=== PATIENT | female | born 1945 | race Caucasian/White ===

== ENCOUNTER 2021-02-02 09:58 | Outpatient (CLI) | payer MEDICARE, SELFPAY ==
--- NOTE | ~2021-02-02 | MM_ITS ---
EXAMINATION: MM screening [facility] BI w woo HISTORY: Screening mammogram TECHNIQUE: Craniocaudal and mediolateral oblique 3-D tomosynthesis images were obtained and synthetic 2-D images were generated. CAD analysis was submitted and interpreted. COMPARISON: 11/18/2019, 06/20/2018 BREAST PARENCHYMAL COMPOSITION: The breasts are almost entirely fatty. FINDINGS: There is no evidence of suspicious mass, calcification, or architectural distortion to sugg est malignancy in either breast. There has been no suspicious interval change. IMPRESSION: 1. No mammographic evidence of malignancy. 2. Recommend routine screening mammography in one year. BI-RADS Category 1: Negative Reviewed, dictated and finalized at location A.
== END 2021-02-02 09:59 | disposition home or self-care (01) ==
PROVIDERS: PCP Family Medicine; Visit Provider Obstetrics & Gynecology
DX: Z12.31 Encounter for screening mammogram for malignant neoplasm of breast (principal)
CPT/HCPCS: 77063; 77067

== ENCOUNTER 2022-04-14 08:14 | Outpatient (CLI) | payer MEDICARE, SELFPAY ==
--- NOTE | ~2022-04-14 | MM_ITS ---
EXAMINATION: MM screening [facility] BI w woo HISTORY: Screening TECHNIQUE: Craniocaudal and mediolateral oblique 3-D tomosynthesis images were obtained and synthetic 2-D images were generated. CAD analysis was submitted and interpreted. COMPARISON: Comparison to multiple prior studies sequentially, with oldest reviewed study dated 06/20. BREAST PARENCHYMAL COMPOSITION: There are scattered areas of fibroglandular density. FINDINGS: There is no evidence of suspicious mass, calcification, or architectural distortion to sugg est malignancy in either breast. There has been no suspicious interval change. IMPRESSION: 1. No mammographic evidence of malignancy. 2. Recommend routine screening mammography in one year. BI-RADS Category 1: Negative Reviewed, dictated and finalized at location A.
== END 2022-04-14 08:15 | disposition home or self-care (01) ==
PROVIDERS: PCP Family Medicine; Visit Provider Family Medicine
DX: Z12.31 Encounter for screening mammogram for malignant neoplasm of breast (principal)
CPT/HCPCS: 77063; 77067

== ENCOUNTER 2022-06-29 09:19 | Emergency (ER) | payer MEDICARE, SELFPAY ==
[2022-06-29] VITALS (32 sets, daily range): BP systolic 126–167; BP diastolic 58–75; PULSE 58–75; RESP 12–22; TEMP 37.1; O2SAT 95–100
--- NOTE | 2022-06-29 09:37 | ECG_ITS ---
Measurements Intervals [place] [facility] Rate: 61 P: 57 AK: 190 QRS: 15 QRSD: 89 T: 49 QT: 416 QTc: 422 Interpretive Statements SINUS RHYTHM NORMAL ELECTROCARDIOGRAM NO PREVIOUS ECG AVAILABLE FOR COMPARISON Electronically Signed On 06-29-2022 12:52:37 CDT by Bob Lees M.D.
[2022-06-29 09:50] LABS: Basophils Percent Auto 0.8 % (0.2-1.2); Eosinophils Percent Auto 0.4 % (0-4.4); Hematocrit 38.1 % (37.0-47.0); Hemoglobin 13.5 g/dL (12.0-15.0); Immature Granulocyte Absolute 0.01 K/mm3 (0.00-0.031); Immature Granulocyte Percent A 0.4 % (0-0.5); Lymphocytes Percent Auto 27.3 % (18.3-44.2); Mean Corpuscular HGB Conc 35.4 g/dl (32-36); Mean Corpuscular Hemoglobin 33.2 pg (26-34); Mean Corpuscular Volume 93.6 fl (80-100); Mean Platelet Volume 9.6 fl (7.4-10.4); Monocytes Absolute Auto 0.4 K/mm3 (0.1-0.6); Monocytes Percent Auto 14.5 % (2.6-8.5); Neutrophils Absolute Auto 1.5 K/mm3 (1.3-6.7); Neutrophils Percent Auto 56.6 % (45.5-73.1); Platelet Count Result 276 k/mm3 (150-375); Red Blood Count 4.07 M/mm3 (4.2-5.4); White Blood Count 2.6 K/mm3 (4.5-10.0)
[2022-06-29 09:53] LABS: Appearance Urine Clear (Clear); Bilirubin Urine Negative (Negative); Blood Urine Negative (Negative); Glucose Urine UA Negative (Negative); Ketones Urine Negative (Negative); Leukocyte Esterase Ur Negative LEU/UL (Negative); Nitrate Urine Negative (Negative); Protein Urine Negative (Negative); Specific Grav Ur 1.015 (1.001-1.035); Urobilinogen Urine 0.2 mg/dL (<2.0)
[2022-06-29 10:01] LABS: Alanine Aminotransferase 27 U/L (6-35); Albumin Level 4.3 g/dL (3.5-5.1); Alkaline Phosphatase 81 U/L (38-126); Anion Gap 8 mmol/L (8-16); Aspartate Amino Transferase 52 U/L (14-36); Bilirubin,Total 0.4 mg/dL (0.2-1.3); Blood Urea Nitrogen 7 mg/dL (7-17); Calcium 8.5 mg/dL (8.4-10.2); Carbon Dioxide 25 mmol/L (22-30); Chloride 95 mmol/L (98-107); Estimated CRCL calculation 50 ml/min; Estimated Glomerular Filt Rate > 60; Glucose 135 mg/dL (65-110); Potassium 3.7 mmol/L (3.4-5.0); Sodium 128 mmol/L (137-145)
[2022-06-29 10:11] LABS: Add Urine Microscopic? NO; Color Urine Light Yellow (Yellow)
[2022-06-29] MEDS: SODIUM CHLORIDE 0.9% IV 1,000 ML 999 ML IV CONT (11:21)
--- NOTE | 2022-06-29 11:39 | PC.NURSE ---
Assumed pt care from SHADE Urias
--- NOTE | 2022-06-29 12:57 | ED.GENADULT ---
HPI - General Adult General Chief complaint: Weakness Stated complaint: COVID+ 06/24 Time Seen by Provider: 06/29/22 09:33 History of Present Illness HPI narrative: Patient is a 76-year-old female who presents the ER with weakness and fatigue. Patient diagnosed with COVID on 06/24/2022. She is on day 6. She has not been on Paxil bed. She has been having weakness and fatigue and decreased oral intake. She endorses fevers and chills. Yesterday she began having some nausea and vomiting as well as some diarrhea. No alleviating factors. No difficulty breathing. Very mild cough. Related Data Home Medications Medication Instructions Recorded Confirmed aspirin 81 mg tablet,delayed 81 mg PO DAILY 06/12/21 06/12/21 release (Adult Low Dose Aspirin) losartan 100 1 tablet PO DAILY 06/12/21 06/12/21 mg-hydrochlorothiazide 12.5 mg tablet metoprolol succinate 50 mg 50 mg PO DAILY 06/12/21 06/12/21 tablet,extended release 24 hr omeprazole 20 mg capsule,delayed 20 mg PO DAILY 06/12/21 06/12/21 release Allergies Allergy/AdvReac Type Severity Reaction Status Date / Time No Known Allergies Allergy Verified 06/29/22 09:36 Review of Systems Review of Systems: All systems reviewed & are unremarkable except as noted in HPI and below Constitutional: Constitutional: Reports chills, Reports fatigue, Reports fever(s) and Reports weakness ENT: Denies nasal congestion and Denies sore throat Cardiovascular: Cardiovascular: Denies chest pain, Denies rapid heart rate and Denies radiating jaw, neck or arm pain Gastrointestinal: Gastrointestinal: Denies abdominal pain, Reports diarrhea, Reports nausea and Denies vomiting Genitourinary: Genitourinary: Denies nocturia and Denies dysuria PMFSH Family History Family History Father Asthma Cancer Mother Cerebrovascular accident Hypertension Social History Social History Smoking status: Never smoker Alcohol intake: never Substance use: never Substance use type: does not use Exam Narrative: GENERAL: Well-appearing, well-nourished, and in no acute distress. HEAD: Normocephalic, atraumatic. EYES: PERRL and EOMI. ENT: Mucous membranes moist. CHEST: Clear to auscultation. No respiratory distress. HEART: Regular rate and rhythm. Normal peripheral pulses. ABDOMEN: Soft, nontender, nondistended. EXTREMITIES: Normal range of motion. No edema. SKIN: Warm, dry, no rash. NEURO: Alert and oriented x3. PSYCH: Normal mood and affect. Course Course Emergency Course: Patient resting comfortably. Hydrated. Still some nausea so we will give some Zofran. Discharge home with supportive care. Vital Signs Vital signs: Vital Signs Temperature 98.8 F 06/29/22 09:28 Pulse Rate 67 06/29/22 09:28 Respiratory Rate 14 06/29/22 09:28 Blood Pressure 165/73 H 06/29/22 09:28 Pulse Oximetry 95 06/29/22 09:28 Oxygen Delivery Room Air 06/29/22 09:28 Temperature 98.8 F 06/29/22 09:28 Pulse Rate 64 06/29/22 11:16 Respiratory Rate 17 06/29/22 11:16 Blood Pressure 150/68 H 06/29/22 11:16 Pulse Oximetry 96 06/29/22 11:16 Oxygen Delivery Room Air 06/29/22 09:28 Medical Decision Making Vital Signs Vital Signs: Vital Signs Temperature 98.8 F 06/29/22 09:28 Pulse Rate 67 06/29/22 09:28 Respiratory Rate 14 06/29/22 09:28 Blood Pressure 165/73 H 06/29/22 09:28 Pulse Oximetry 95 06/29/22 09:28 Oxygen Delivery Room Air 06/29/22 09:28 Temperature 98.8 F 06/29/22 09:28 Pulse Rate 64 06/29/22 11:16 Respiratory Rate 17 06/29/22 11:16 Blood Pressure 150/68 H 06/29/22 11:16 Pulse Oximetry 96 06/29/22 11:16 Oxygen Delivery Room Air 06/29/22 09:28 Lab Data Result diagrams: 06/29/22 09:42 06/29/22 09:42 Labs: Lab Results 06/29/22 06/29/22 06/29/22 Rang
[2022-06-29] MEDS: ONDANSETRON INJ 4 MG/2 ML VIAL IV PUSH (13:42)
== END 2022-06-29 14:30 | disposition home or self-care (01) ==
PROVIDERS: Emergency Provider Emergency Medicine; PCP Family Medicine
DX: U07.1 COVID-19 (principal); Z79.82 Long term (current) use of aspirin
CPT/HCPCS: 36415; 80053; 81003; 85025; 93005; 96361; 96374; 99284; J2405; J7030

== ENCOUNTER 2023-07-22 10:01 | Outpatient (CLI) | payer MEDICARE, SELFPAY ==
--- NOTE | ~2023-07-22 | MM_ITS ---
EXAMINATION: MM screening [facility] BI w woo HISTORY: Screening TECHNIQUE: Craniocaudal and mediolateral oblique 3-D tomosynthesis images were obtained and synthetic 2-D images were generated. CAD analysis was submitted and interpreted. COMPARISON: Comparison to multiple prior studies sequentially, with oldest reviewed study dated 06/20. BREAST PARENCHYMAL COMPOSITION: There are scattered areas of fibroglandular density. FINDINGS: There is no evidence of suspicious mass, calcification, or architectural distortion to sugg est malignancy in either breast. There has been no suspicious interval change. IMPRESSION: 1. No mammographic evidence of malignancy. 2. Recommend routine screening mammography in one year. BI-RADS Category 1: Negative Reviewed, dictated and finalized at location A.
== END 2023-07-22 10:02 | disposition home or self-care (01) ==
PROVIDERS: PCP Family Medicine; Visit Provider Family Medicine
DX: Z12.31 Encounter for screening mammogram for malignant neoplasm of breast (principal)
CPT/HCPCS: 77063; 77067

== ENCOUNTER 2023-08-15 14:32 | Outpatient (CLI) | payer MEDICARE, SELFPAY ==
--- NOTE | ~2023-08-15 | DEXA_ITS ---
Bone Density Report Name: ANGELICA CARPENTER Age: 77 Sex: Female Ethnicity: White Date of : 1945 Indication: postmenopausal; screening for osteoporosis; parental hip fracture; height loss; Referring Provider: KAROLYN, DAIANA Muhammad Study: Bone densitometry was performed. Exam Date: August 15, 2023 Accession number: [id number] Bone Density: Region BMD T-score Z-score Classification AP Spine(L1-L4) 0.918 -1.2 1.4 Osteopenia Femoral Neck (Left) 0.665 -1.7 0.6 Osteopenia Total Hip (Left) 0.841 -0.8 1.2 Normal Femoral Neck (Right) 0.606 -2.2 0.1 Osteopenia Total Hip (Right) 0.790 -1.2 0.8 Osteopenia Total Hip Mean 0.816 -1.0 1.0 Normal World Health Organization criteria for BMD impression classify patients as: Normal (T-score at or above -1.0), Osteopenia (T-score between -1.0 and -2.5), or Osteoporosis (T-score at or below -2.5). 10-year Fracture Risk(1): Major Osteoporotic Fracture 29% Hip Fracture 19% Reported Risk Factors: [place] (), Neck BMD=0.606, BMI=27.5, parental fracture (1) FRAX(R) Version 3.08. Fracture probability calculated for an untreated patient. Fracture probability may be lower if the patient has received treatment. Clinical Information Provided by Patient: Parent has had a hip fracture Has used the following medications: Vitamin D Patient maximum height was 64 Menopause Age: 49 No regular weight bearing exercise Drinks caffeinated beverages Onset of menses at age 13 Number of children 3 Impression: The patient has low bone mass, based on the Right Femoral Neck T-score. The patient has an estimated ten-year risk of hip fracture of 19% and an estimated ten-year risk of major fracture of 29%, based on the WHO FRAX algorithm. The patient has risk factors, including: parental hip fracture. Discussion: BONE DENSITY IS LOW AT ONE OR MORE SKELETAL SITES. THE PATIENT'S BMD AND CLINICAL RISK FACTORS CONTRIBUTE TO THIS PATIENT'S HIGH RISK OF FRACTURE. This patient's lowest T-score is low at one or more skeletal sites. It meets the World Health Organization's (WHO) criteria for ?low bone mass? (T-score between -1.0 and -2.5). The patient's 10-year risk of hip fracture and 10 year risk of a major osteoporotic fracture as calculated by FRAX exceeds the threshold where pharmacological therapy is recommended by the National Osteoporosis Foundation (NOF). However, all treatment decisions require clinical judgment and consideration of individual patient factors, including patient preferences, comorbidities, previous drug use, risk factors not captured in the FRAX model (e.g., frailty, falls, vitamin D deficiency, increased bone turnover, interval significant decline in bone density) and possible under or overestimation of fracture risk by FRAX. The patient should follow
== END 2023-08-15 14:33 | disposition home or self-care (01) ==
PROVIDERS: PCP Family Medicine; Visit Provider Family Medicine
DX: Z78.0 Asymptomatic menopausal state (principal); M85.89 Other specified disorders of bone density and structure, multiple sites
CPT/HCPCS: 77080

== ENCOUNTER 2023-11-06 20:56 | Emergency (ER) | payer OTHER, SELFPAY ==
--- NOTE | ~2023-11-06 | CT_ITS ---
EXAMINATION: CT brain wo con DATE: 11/06/2023 22:26 INDICATION: Head injury. TECHNIQUE: Computed tomography (CT) of the head was performed without intravenous contrast. The mA wa s adjusted according to patient size. Iterative reconstruction technique was employed. The dose-lengt h product was 605.33 mGy-cm. COMPARISON: None FINDINGS: There is no intracranial hemorrhage, acute infarction, or abnormal intracranial mass lesion . There are scattered areas of low attenuation in the cerebral white matter. The ventricles are norm al in size. There is mild mucosal thickening in the paranasal sinuses. The mastoid air cells are norm al. There are likely changes of ocular lens replacement surgeries. There is a left frontal scalp bobbi melanie. IMPRESSION: 1. Mild nonspecific cerebral white matter disease, which likely represents chronic small vessel ische lashae disease. Reviewed, dictated and finalized at location E. BASE ADMIN IMPRESSION: 1. Mild nonspecific cerebral white matter disease, which likely represents lunchroom monitor noam small vessel ischemic disease.
--- NOTE | ~2023-11-06 | CT_ITS ---
EXAMINATION: CT facial & cervical spine wo DATE: 11/06/2023 22:29 INDICATION: Head injury. TECHNIQUE: Computed tomography (CT) of the maxillofacial region and cervical spine was performed with out intravenous contrast. Automated exposure control and iterative reconstruction technique were empl oyed. The dose-length product was 237.62 mGy-cm. COMPARISON: None FINDINGS: MAXILLOFACIAL CT: There is a left frontal scalp hematoma. There are likely changes of ocular lens replacement surgeries . There is leftward deviation the nasal septum. No fracture. There is mild mucosal thickening in the paranasal sinuses. CERVICAL SPINE CT: There is mild scarring at the lung apices. There is 8 degrees dextrocurvature of cervicothoracic spin e. There is mild chronic anterior wedging of T2 vertebral body. There is mildly decreased disc height at C3-C4 and C4-C5. The following disc levels are specifically discussed: C2-C3: There is no uncovertebral joint osteoarthritis. There is mild right and severe left facet join t osteoarthritis. There is mild left neural foraminal stenosis. There is no central canal stenosis. C3-C4: There is mild right and severe left uncovertebral joint osteoarthritis. There is severe right and mild left facet joint osteoarthritis. There is mild bilateral neural foraminal stenosis. There is mild central canal stenosis. C4-C5: There is mild bilateral uncovertebral joint osteoarthritis. There is severe right facet joint osteoarthritis. There is mild right neural foraminal stenosis. There is mild central canal stenosis. C5-C6: There is mild bilateral uncovertebral joint osteoarthritis. There is severe right and mild lef t facet joint osteoarthritis. There is mild right neural foraminal stenosis. There is mild central ca nal stenosis. C6-C7: There is no uncovertebral joint osteoarthritis. There is mild bilateral facet joint osteoarthr itis. There is no neural foraminal stenosis. There is no central canal stenosis. C7-T1: There is no uncovertebral joint osteoarthritis. There is mild right and moderate left facet wilman int osteoarthritis. There is no neural foraminal stenosis. There is no central canal stenosis. IMPRESSION: 1. No fracture. 2. Mild cervical spondylosis. Reviewed, dictated and finalized at location E. ING COORDINATOR
[2023-11-06 21:00] VITALS: BP 172/68; PULSE 94; RESP 23; TEMP 36.6; O2SAT 100
[2023-11-06 21:55] VITALS: BP 163/54; PULSE 79; RESP 16; O2SAT 99
--- NOTE | 2023-11-06 22:19 | ED.HEATRA ---
HPI - Head Injury General Chief complaint: Trauma Stated complaint: fall head trauma Time Seen by Provider: 11/06/23 21:30 Source: patient and family Limitations: no limitations History of Present Illness HPI Narrative: Patient is a 78-year-old female presents to the emergency department accompanied by her sister for a fall. Patient neck just got home from [facility] at around 8:30 p.m. as walking up her steps her back and was on a level plane of the back she dropped a water and she is holding insert rolling away she went on to gravid fall forward and hit the left side of her face on the railing of the back. Patient did not lose consciousness. Patient denies use of blood thinners. Patient notes that she has been are normal state of health as of lately. Patient admits to standing up around been ambulatory since the event without any difficulty. Patient admits to pain over the left side of her face for which she has not taken any medications yet. Patient denies vision changes, difficulty swallowing, numbness, weakness, extremity pain, decreased range of motion, chest pain, shortness of breath, vomiting, nausea, abdominal pain, back pain, neck pain, urinary incontinence stool incontinence, dysuria, hematuria, urinary frequency, urinary urgency, diarrhea, melena, hematochezia, loose or chipped teeth. Patient does not know when her last tetanus shot was. Patient denies alcohol or illicit drug use. Related Data Home Medications Medication Instructions Recorded Confirmed aspirin 81 mg tablet,delayed 81 mg PO DAILY 06/12/21 06/12/21 release (Adult Low Dose Aspirin) losartan 100 1 tablet PO DAILY 06/12/21 06/12/21 mg-hydrochlorothiazide 12.5 mg tablet metoprolol succinate 50 mg 50 mg PO DAILY 06/12/21 06/12/21 tablet,extended release 24 hr omeprazole 20 mg capsule,delayed 20 mg PO DAILY 06/12/21 06/12/21 release Allergies Allergy/AdvReac Type Severity Reaction Status Date / Time No Known Allergies Allergy Verified 11/06/23 21:05 Review of Systems Review of Systems: A 10 system review of systems was completed on the patient and is negative except for what is stated in the HPI. Nursing and ancillary documentation was reviewed. [facility] Family History Family History Father Asthma Cancer Mother Cerebrovascular accident Hypertension Social History Social History Smoking status: Never smoker Alcohol intake: never Substance use: never Substance use type: does not use Comments At time of signature, I have reviewed and agree with nursing past medical, surgical, social and family history unless otherwise noted. Please see the nursing chart for further information. There is no relevant family history pertinent to the presenting complaint. Exam Narrative: CONST: No acute distress. Well nourished. HENMT: Moist mucous membranes. No posterior oropharynx erythema. No loose or chipped teeth. Midface is stable. left periorbital ecchymosis without tarsal plate spurring. No Graves sign. No hemotympanum bilaterally. Moderate swelling of the left forehead with mild tenderness to palpation, no palpable bony deformities. EYES: No conjunctival icterus, injection, or pallor. PERRL. Extraocular motions intact. NECK: No meningeal signs. RESP: Able to speak in full sentences. Normal respiratory effort. CTAB. CARDIO: Regular rate. Regular rhythm. 2+ DP and radial pulses bilaterally. GI: Nondistended. No tenderness to palpation. Soft. : No CVA tenderness to palpation. SKIN: No rashes or lesions noted on exposed skin. Small superficial hemostatic skin tears with scant ecchymosis overlying the left posterior distal forearm and the left dorsum of the hand and the right medial distal forearm. NEURO: Oriented x3. Moves all extremities. Sensation intact to light touch in all 4 extremities and fac
[2023-11-06] MEDS: HYDROcodone/acetaminophen (*CRX) 5-325 MG TABLET 1 TAB PO (22:39)
[2023-11-06] MEDS: TETANUS,DIPHTHERIA,AC PERTUSSIS ADULT (0.5 ML) BOOSTRIX IM (22:40)
[2023-11-06 23:59] VITALS: BP 149/54; PULSE 88; RESP 16; O2SAT 98
== END 2023-11-07 | disposition home or self-care (01) ==
LOC: ANHED 23:34
PROVIDERS: Emergency Provider Student in an Organized Health Care Education/Training Program; PCP Family Medicine
DX: S00.12XA Contusion of left eyelid and periocular area, initial encounter (principal); S00.03XA Contusion of scalp, initial encounter; S51.812A Laceration without foreign body of left forearm, initial encounter; S61.412A Laceration without foreign body of left hand, initial encounter; S51.811A Laceration without foreign body of right forearm, initial encounter; Z23 Encounter for immunization; Z79.82 Long term (current) use of aspirin; R90.82 White matter disease, unspecified; M47.812 Spondylosis without myelopathy or radiculopathy, cervical region; W01.198A Fall on same level from slipping, tripping and stumbling with subsequent striking against other object, initial encounter
CPT/HCPCS: 70450; 70486; 72125; 90471; 90715; 99284; A9270

== ENCOUNTER 2024-07-23 08:03 | Outpatient (CLI) | payer OTHER, SELFPAY ==
--- NOTE | ~2024-07-23 | MM_ITS ---
EXAMINATION: MM screening [facility] BI w woo HISTORY: Screening mammogram TECHNIQUE: Craniocaudal and mediolateral oblique 3-D tomosynthesis images were obtained and synthetic 2-D images were generated. CAD analysis was submitted and interpreted. COMPARISON: 07/22/2023, 04/14/2022, 02/02/2021, 11/18/2019 BREAST PARENCHYMAL COMPOSITION:Not Dense. The breasts are almost entirely fatty FINDINGS: No suspicious mass, calcification, or architectural distortion are identified in either jonathan ast to suggest malignancy. There has been no suspicious interval change. IMPRESSION: No mammographic evidence of malignancy. Recommend routine screening mammography in one year. BI-RADS Category 1: Negative Reviewed, dictated and finalized at location .
== END 2024-07-23 08:04 | disposition home or self-care (01) ==
PROVIDERS: PCP Family Medicine; Visit Provider Family Medicine
DX: Z12.31 Encounter for screening mammogram for malignant neoplasm of breast (principal)
CPT/HCPCS: 77063; 77067

== ENCOUNTER 2025-08-20 07:54 | Outpatient (CLI) | payer OTHER, SELFPAY ==
--- NOTE | ~2025-08-20 | MM_ITS ---
EXAMINATION: MM screening alexander BI w woo HISTORY: Screening TECHNIQUE: Craniocaudal and mediolateral oblique 3-D tomosynthesis images were obtained and synthetic 2-D images were generated. CAD analysis was submitted and interpreted. COMPARISON: 04/14/2022 BREAST PARENCHYMAL COMPOSITION: There are scattered areas of fibroglandular density. FINDINGS: There is no evidence of suspicious mass, calcification, or architectural distortion to suggest malignancy. There has been no suspicious interval change. IMPRESSION: 1. No mammographic evidence of malignancy. Recommend routine screening mammography in one year. BI-RADS Category 2: Benign finding(s) Reviewed, dictated and finalized at location Q. IMPRESSION: 1. No mammographic evidence of malignancy. Recommend routine screening mammogra phy in one year. BI-RADS Category 2: Benign finding(s)
--- OUTSIDE RECORDS SUMMARY | 2025-08-20 08:03 | XMS_ITS | Encounter Summary ---
Author Organization [facility] Facility Care Team Providers Care Pupil Personnel Worker Name Role Phone Isaak Salamanca MD Primary Care Provider [phone] Aga Land MD Unavailable [phone] Alfonso Walls MD Unavailable [phone] Encounter Details Date Type Department Care Team (Latest Contact Info) Description 03/30/2016 Orders Only [facility] CLINCONV ProviderHui MD [address] [place] [id number] Social History Tobacco Use Types Packs/Day Years Used Date Smoking Tobacco: Never Assessed Comments Unknown Sex and Gender Information Value Date Recorded Sex Assigned at Not on file Legal Sex Female 8:25 AM CDT Gender Identity Not on file Sexual Orientation Not on file documented as of this encounter Plan of Treatment Not on file documented as of this encounter Procedures Procedure Name Priority Date/Time Associated Diagnosis Comments COLONOSCOPY - SCAN 03/30/2016 12 :00 AM CDT documented in this encounter Results * COLONOSCOPY - SCAN (03/30/2016 12:00 AM CDT) Narrative 03/30/2016 12:00 AM CDT Ordered by an unspecified provider. 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
--- OUTSIDE RECORDS SUMMARY | 2025-08-20 08:03 | XMS_ITS | Encounter Summary ---
Author Organization [facility] Facility Care Team Providers Care Media Marketing Manager Name Role Phone Isaak Salamanca MD Primary Care Provider [phone] Aga Land MD Unavailable [phone] Alfonso Walls MD Unavailable [phone] Encounter Details Date Type Department Care Team (Latest Contact Info) Description 04/22/2018 Orders Only [facility]G CLINCONV ProviderHui MD [address] [place] [address] Social History Tobacco Use Types Packs/Day [...] Date/Time Associated Diagnosis Comments COLONOSCOPY - SCAN 04/22/2018 12 :00 AM CDT documented in this encounter Results * COLONOSCOPY - SCAN (04/22/2018 12:00 AM CDT) Narrative 04/22/2018 12:00 AM CDT Ordered by an unspecified provider. Historical Provider Final Res ult documented in this encounter Visit Diagnoses Not on filedocumented in this encounter Additional Health Concerns Infection Onset Date Last Indicated Resolved Time COVID19 Comment:COVID positive 06/24/22 07/02/2022 07/02/2022 11:49 AM CDT COVID: Recovered Comment:Last COVID positive 06/24/22 07/05/2022 07/05/202210/06 3:05 AM ADVICE LINE RN documented as of this encounter Care Teams Media Marketing Manager Relationship Specialty Start Date End Date Isaak Salamanca MD PCP - General Family Medicine 01/24/19 Aga Land MD [address] [facility] [address] [place] [address] [address] Childcare Aide Cardiology 06/12/19 Alfonso Walls MD [address] [facility] [address] [place] [facility] [place] [address] Surgeon Vascular Surgery 07/17/22 documented as of this encounter
--- OUTSIDE RECORDS SUMMARY | 2025-08-20 08:03 | XMS_ITS | Encounter Summary ---
Author Organization [facility] Facility Care Team Providers Care Senior Laboratory Technician Name Role Phone Isaak Salamanca MD Primary Care Provider [phone] Aga Land MD Unavailable [phone] Alfonso Walls MD Unavailable [phone] Encounter Details Date Type Department Care Team (Latest Contact Info) Description 01/23/2016 Orders Only [facility] CLINCONV ProviderHui MD [address] [place] [address] Social History Tobacco Use Types Packs/Day [...] Procedure Name Priority Date/Time Associated Diagnosis Comments SCAN - LABS 01/24/2016 12:00 AM CDT documented in this encounter Results * SCAN - LABS (01/24/2016 12:00 AM CDT) Narrative 01/24/2016 12:00 AM CDT Ordered by an unspecified provider. 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
--- OUTSIDE RECORDS SUMMARY | 2025-08-20 08:03 | XMS_ITS | Clinical Summary ---
Author Organization [facility] Address [address] [place] [address] Care Team Providers Care School Nurse Name Role Phone Isaak Salamanca MD Primary Care Provider [phone] Aga Land MD Unavailable Alfonso Walls MD Unavailable [phone] Allergies Active Allergy Reactions Criticality Noted Date Comments Atorvastatin Muscle pain Medium 02/11/2019 muscle pain Rosuvastatin Muscle pain Medium 05/17/2022 Medications aspirin 81 mg enteric coated tablet 1 tablet (81 mg total) daily Active omeprazole (PriLOSEC) 20 mg capsule Take 1 capsule (20 mg total) by mouth daily as needed 3 02/24/20 19 Active valACYclovir (VALTREX) 1 gram tablet 1 tablet (1,000 mg total) 1 08/31/20 19 Active LORazepam (ATIVAN) 0.5 mg tabletIndication s:JOCELYNE (generalized anxiety disorder) Take 1 tablet (0.5 mg total) by mouth every 12 (twelve) hours as needed for anxiety 60 tablet 10/07/20 23 Active ezetimibe (ZETIA) 10 mg tablet Take 1 tablet (10 mg total) by mouth daily 90 tablet 3 09/01/20 24 Active pravastatin (PRAVACHOL) 40 mg tablet TAKE 1 TABLET BY MOUTH EVERY DAY AT NIGHT 90 tablet 3 01/19/20 25 Active amLODIPine (NORVASC) 5 mg tablet TAKE ONE TABLET DAILY NEEDED . 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 Ischemic colitis likely secondary to COVID infection and severe dehydration. Pain has resolved she is tolerating diet. No further workup needed currently. Left hand is warm and adequately perfused status post brachial access. Pulmonary nodule 07/10/2022 Chronic pain of both shoulders 10/04/2021 Encounter for Medicare annual wellness exam 09/04 JOCELYNE (generalized anxiety disorder) 09/21/2020 Post menopausal syndrome 08/19/2018 OAB (overactive bladder) 12/10/2016 Assessment & Plan (03/11/2019 1:42 PM CDT): No meds Pure hypercholesterolemia 07/06/2016 Assessment & Plan (03/11/2019 1:42 PM CDT): No meds, follow Assessment & Plan (02/11/2019 9:57 AM CDT): Following low-cholesterol diet in taking statins GERD (gastroesophageal reflux disease) 6 Assessment & Plan (03/11/2019 1:43 PM CDT): Diet, exercise HTN (hypertension) 05/17/2016 Assessment & Plan (07/23/2022 2:23 PM CDT): Hypertension chronic and controlled. Continue medical therapy Assessment & Plan (03/11/2019 1:42 PM CDT): Diet, exercise, meds, refills Assessment & Plan (02/11/2019 9:56 AM CDT): Patient to following salt restriction in taking her blood pressure at home which at times is a little high. Osteoarthritis 05/17/2016 Resolved Problems Problem Noted Date Diagnosed Date Resolved Date Precordial chest pain 07/25/20232024 Chronic pansinusitis 05/24/2023 023 Deviated nasal septum 05/24/20232022 Hypertrophy of both inferior nasal turbinates 05/24/20 23 10/07/2023 Nasal valve stenosis 05/24/2023 023 COVID-19 virus infection 07/10/202202/2024 Hematoma of arm, left, sequela 07/10/2022 04/07/2024 Ischemic colitis 07/03/2022 04/07/2024 Assessment & Plan (07/23/2022 2:24 PM CDT): Resolved. Continue medical management Palpitation 08/25/2020 10/07/2023 Carotid bruit 08/17/2019 03/16/2020 Palpitations 07/06/2016 04/13/2025 Assessment & Plan (02/11/2019 9:57 AM CDT): Having palpitations occasionally which is more like a racing of heart Shortness of breath 07/06/2016 03/11/20 19 Assessment & Plan (02/11/2019 9:56 AM CDT): Patient doing well Has exertional Diverticulitis 07/06/2016 03/11/2019 DJD (degenerative joint disease) 07/06/2016 12/15/2019 Psoriasis 07/06/2016 04/07/2024 Nervousness 07/06/2016 04/07/2024 Epigastric pain 05/17/2016 03/16/2020 Generalized edema 05/17/2016 03/16/2020 Encounters Date Type Department Care Team Description 07/20/2025 Telephone [facility] Family Medicine at [address] [place] [address] Britt Rolon Chart Review (Med Adherence ([facility])) 07/08/2025 Telephone [facility] Family Medicine at [address] [place] [id number] Britt Rolon Successful Phone Call ([facility]) from Last 3 Months Immunizations Immunization Administration Dates Next Due DTaP 12/30/2014 Influenza, Quad, Adjuvantate d, Intramuscular 07/26/2023,08/22/2022 Influenza, Quadrivalent, Hig h Dose, Preservative Free, Intrr 08/23/2022,08/08/2021,08/25/2020 Influenza, Trivalent, Adjuva nted, Intramuscular 08/11/2024 Influenza, Trivalent, High D ose, Split, Preservative Free, Intramuscular 09/04/2019,08/14/2018,08/27/2017,07/22,07/13/2014 Influenza, Trivalent, IM (MDV) 07/29/2013 Influenza, Unspecified 08/04/2023,09/04/2021 Tdap 11/06/2023,12/30/2014 Surgical History Surgery Date Site/Laterality Comments ARM SURGERY Left fractured ENTEROCELE REPAIR 11/04/2010 - 11/03/2011 DR BOONE ANTERIOR AND POSTERIOR VAGINAL REPAIR 11/04/2010 - 11/03/2011 A&P COLPORRHAPHY, ENTEROCELE REPAIR, MINI ARC SS. DR BOONE AORTIC ILIAC FEMORIAL ANGIOGRAM INTERVENTION 07/03/2022 SMA angiogram Medical History Medical History Date Comments Diverticulitis GERD (gastroesophageal reflux disease) DJD (degenerative joint disease) Hypercholesterolemia Psoriasis nervousness Nervousness SOB (shortness of breath) Palpitations OAB (overactive bladder) Hypertension Gastric reflux Primary osteoarthritis of left knee DDD (degenerative disc disease), lumbar Lumbar facet arthropathy Allergic rhinitis Sinusitis Family History Medical History Relation Name Comments ALS Brother 5 Heart disease Brother 5 Prostate cancer Brother 5 Stomach cancer Father No Known Problems Maternal Grandfather No Known Problems Maternal Grandmother Stroke Mother No Known Problems Paternal Grandfather No Known Problems Paternal Grandmother No Known Problems Sister 1 2 Dementia Sister 2 2 Relation Name Status Comments Brother 5 Father Maternal Grandfather Maternal Grandmother Mother Paternal Grandfather Paternal Grandmother Sister 1 2 Alive Sister 2 2 Social History Tobacco Use Types Packs/Day Years Used Date Smoking Tobacco: Never Smokeless Tobacco: Never Tobacco Cessation:Counseling Given: Not Answered Alcohol Use Standard Drinks/Week Comments Not Currently 0 (1 standard drink = 0.6 oz pur e alcohol) AUDIT-C Answer Date Recorded Frequency of Alcohol Consumption Not on file 11/27/2023 Q2: How many drinks containi ng alcohol do you have on a typical day when you are drinking? Patient does not drink Q3: How often do you have si x or more drinks on one occasion? Never 11/27/2023 PHQ-2 Answer Date Recorded PHQ-2 Total Score (If total score is 3 or more points, staff should administer the PHQ-9) 0 04/13/2025 Comments No Sex and Gender Information Value Date Recorded Sex Assigned at Not on file Legal Sex Female 8:25 AM CDT Gender Identity Not on file Sexual Orientation Not on file Obstetrics History Para Term AB IAB SAB Ectopic Multiple Livin g Live Births 3 3 Date Outcome GA Total Labor Labor/2nd/3rd Weight Sex Type Anes PTL Isaura A1 A5 Name Clin Para Para Para Last Filed Vital Signs Vital Sign Reading Time Taken Comments Blood Pressure 130/80 04/13/2025 10:33 AM CDT Pulse 76 04/13/2025 9:32 AM CDT Temperature 36.7 C (98 F) 04/13/2025 9:32 AM CDT Respiratory Rate 18 03/22/2025 1:26 PM CDT Oxygen Saturation 98% 04/13/2025 9:32 AM CDT Inhaled Oxygen Concentration - - Weight 69.3 kg (152 lb 11.2 oz) 04/13/2025 9:32 AM CDT Height 162.6 cm (5' 4) 04/13/2025 9:32 AM CDT Body Mass Index 26.21 04/13/2025 9:32 AM CDT Plan of Treatment Health Maintenance Due Date Last Done Comments Hepatitis B Screening 1962 Pneumococcal vaccine 65+ (1 of 1 - PCV) 1994 Zoster Vaccine (1 of 2) 1994 Influenza Vaccine (#1) 2025 , 08/04/2023, 07/26/2023, Additional history exists Osteoporosis Screening-Bone Density Scan 08/15/2025 08/15/2023, 06/20/2015 Depression Screening 04/13/2026 04/13/2025, 04/07/2024, 10/07/2023, Additional history exists Fall Risk Assessment 04/13/2026 04/13/2025, 04/07/2024, 10/07/2023, Additional history exists Well Visit 65+ 04/13/2026 04/13/2025, 0602/2024, 10/18/2022, Additional history exists DTaP/Tdap/Td Vaccine (4 - Td or Tdap) 11/06/2033 11/06/2023, 12/30/2014, 12/30/2014 Colon Cancer Screening-CT Colonography Discontinued 04/08/2025 Colon Cancer Screening-Colonoscopy Discontinued 04/08/2025 Colon Cancer Screening-DNA Stool Discontinued 04/08/20 Colon Cancer Screening-FIT Discontinued 04/08/2025 Colon Cancer Screening-FOBT Discontinued 04/08/2025 Colon Cancer Screening-Sigmoidoscopy Discontinued 04/08/2025 Colorectal Cancer Screening Discontinued Procedures Procedure Name Priority Date/Time Associated Diagnosis Comments COLONOSCOPY Routine 04/08/2025 DEXA AXIAL SKELETON BONE DENSITY 1 OR MORE SITES Schedule Routine, Read Routine (OP Routine) 08/15/2023 Osteoporosis screening Post-menopausal from Last 3 Months or Most Recently Relevant to Health Maintenance Results * Colonoscopy (04/08/2025) Anatomical Region Laterality Modality Other Historical Provider ENDOSCOPY PROCEDURES Elba l Result * Dexa Axial Skeleton Bone Density 1 or 2 Site (08/15/2023) Anatomical Region Laterality Modality Body N/A Radiographic Alba ging Isaak Salamanca MD IMG DXA PROCEDURES Final Resu lt from Last 3 Months or Most Recently Relevant to Health Maintenance Insurance [employer] PPO MEDICARE [facility] Advance Directives For more information, please contact: [phone] Documents on File Type Date Recorded Patient Blood Bank Laboratory Technician Expl anation ADVANCE DIRECTIVE 09/21/2020 * Full Code (Latest Code Status on File) Date Activated Date Inactivated Comments 07/03/2022 2:02 PM 07/06/2022 4:30 PM Care Teams School Nurse Relationship Specialty Start Date End Date Isaak Salamanca MD PCP - General Family Medicine 01/24/19 Aga Land MD [address] [place] [address] Supervisor General Cardiology 06/12/19 Alfonso Walls MD [address] [place] [address] Surgeon Vascular Surgery 07/17/22
--- OUTSIDE RECORDS SUMMARY | 2025-08-20 08:03 | XMS_ITS | Encounter Summary ---
Author Organization [facility] Care Team Providers Care Tax Agent Name Role Phone Isaak Salamanca MD Primary Care Provider [phone] Aga Land MD Unavailable [phone] Alfonso Walls MD Unavailable [phone] Encounter Details Date Type Department Care Team (Latest Contact Info) Description 02/22/2014 Orders Only [facility] CLINCONV ProviderHui MD [address] [place] [id number] Social History Tobacco Use Types Packs/Day [...] Procedure Name Priority Date/Time Associated Diagnosis Comments CARDIOLOGY REPORT 01/16/2017 12: 00 AM CDT CARDIOLOGY REPORT 01/16/2017 12: 00 AM CDT documented in this encounter Results * CARDIOLOGY REPORT (01/16/2017 12:00 AM CDT) Anatomical Region Laterality Modality Other Narrative 01/16/2017 12:00 AM CDT Ordered by an unspecified provider. Historical Provider [facility] STACY LAKHANI Final Result * CARDIOLOGY REPORT (01/16/2017 12:00 AM CDT) Anatomical Region Laterality Modality Other Narrative 01/16/2017 12:00 AM CDT Ordered by an unspecified provider. us Historical Provider [facility] STACY LAKHANI Final Result documented in this encounter Visit Diagnoses Not on filedocumented in this encounter Additional Health Concerns Infection Onset Date Last Indicated Resolved Time COVID19 Comment:COVID positive 06/24/22 07/02/2022 07/02/2022 11:49 AM CDT COVID: Recovered Comment:Last COVID positive 06/24/22 07/05/2022 07/05/202210/06 3:05 AM MIGRANT LEADER documented as of this encounter Care Teams Tax Agent Relationship Specialty Start Date End Date Isaak Salamanca MD PCP - General Family Medicine 01/24/19 Aga Land MD [address] [place] [address] Assistant Product Manager Cardiology 06/12/19 Alfonso Walls MD [address] [place] [address] Surgeon Vascular Surgery 07/17/22 documented as of this encounter
--- OUTSIDE RECORDS SUMMARY | 2025-08-20 08:03 | XMS_ITS | Encounter Summary ---
Author Organization [facility] Facility Care Team Providers Care Multifocal Button Inspector Name Role Phone Isaak Salamanca MD Primary Care Provider [phone] Aga Land MD Unavailable [phone] Alfonso Walls MD Unavailable [phone] Encounter Details Date Type Department Care Team (Latest Contact Info) Description 02/18/2014 Orders Only [facility] CLINCONV ProviderHui MD [address] [place] [id number] Social History Tobacco Use Types Packs/Day [...] COVID positive 06/24/22 07/05/2022 07/05/202210/06 3:05 AM BUSINESS CENTER REPRESENTATIVE documented as of this encounter Care Teams Multifocal Button Inspector Relationship Specialty Start Date End Date Isaak Salamanca MD PCP - General Family Medicine 01/24/19 Aga Land MD [address] [place] [address] Wood Buffer Cardiology 06/12/19 Alfonso Walls MD [address] [place] [address] Surgeon Vascular Surgery 07/17/22 documented as of this encounter
== END 2025-08-20 07:55 | disposition home or self-care (01) ==
LOC: ANHFOHIMG 07:55
PROVIDERS: PCP Family Medicine; Visit Provider Family Medicine
DX: Z12.31 Encounter for screening mammogram for malignant neoplasm of breast (principal)
CPT/HCPCS: 77063; 77067